=== PATIENT | female | born 1960 | race Caucasian/White ===

== ENCOUNTER 2019-09-14 12:26 | Outpatient (CLI) | payer BC, SELFPAY ==
--- NOTE | 2019-09-14 | XR_ITS ---
WS: [id number] FOOT RIGHT TECHNIQUE: 3 views of the right foot CLINICAL INFORMATION: PLANTAR FASCITIS RIGHT COMPARISON: None. FINDINGS: No evidence of acute fracture or dislocation. Normal tarsal metatarsal alignment. Normal calcaneus. N ormal visualized talar dome. Plantar and Achilles calcaneal spurring. XR/XR foot RT min 3V* [id number] IMPRESSION: Plantar and Achilles calcaneal spurring.
== END 2019-09-14 12:27 | disposition home or self-care (01) ==
LOC: RADOUTREAD 09-15 08:05
PROVIDERS: Family Provider Nurse Practitioner; Visit Provider Physician Assistant
DX: Z76.89 Persons encountering health services in other specified circumstances (principal)

== ENCOUNTER 2020-04-02 19:44 | Emergency (ER) | payer BC, SELFPAY ==
[2020-04-02 19:55] VITALS: BP 114/72; PULSE 94; RESP 18; TEMP 36.8; O2SAT 96; BMI 28.3
--- NOTE | 2020-04-02 20:33 | W.ED.FEMALGU ---
HPI - Female Genitourinary General: Chief complaint: Nausea/Vomiting/Diarrhea Stated complaint: uti Time Seen by Provider: 04/02/20 20:04 History of Present Illness: HPI Narrative: Patient is a 60-year-old female comes to the ED with UTI symptoms. Patient does have a history of kidney stones. Patient says she started developing a fever and left side and lower back/flank pain on Saturday. She also says she has some burning when she urinates. She describes the left flank/lower back pain as achy and constant and she rates it an 8 out of 10. She started developing some nausea and emesis last 24 hours. Patient went to [facility] earlier today she was diagnosed with a UTI and put on antibiotic. Patient says that she went home took the first dose antibiotic and then after that she is been becoming increasingly nauseous and has had multiple episodes of emesis. She tried to take the antibiotic orally again and could not keep it down. Patient says she has had some diarrhea as well. Denies any hematuria Associated symptoms: Reports nausea; Deny abdominal pain or headache(s) Review of Systems Const: Reports: fever(s); Denies: chills or fatigue Eyes: Denies: change in vision or eye discomfort ENMT: Denies: throat pain, odynophagia, nasal discharge or nasal congestion Card: Denies: chest pain, palpitations, edema, swelling of feet/ankles, dyspnea on exertion or orthopnea Resp: Denies: dyspnea, productive cough or non-productive cough GI: Reports: nausea, vomiting and diarrhea; Denies: abdominal pain, constipation or hematochezia : Reports: flank pain and dysuria; Denies: hematuria Musc: Denies: neck pain, back pain or extremity swelling Skin/Breast: Denies: rash or new lesions Neuro: Denies: headache(s), numbness in extremities or weakness in extremities PFS ED PFSH: Social History Smoking and tobacco status: never smoked Alcohol intake: never Current occupational status: employed Current occupation: [employer] Physical Exam Const: COMMON NORMALS: patient oriented x3 and alert GENERAL APPEARANCE: cooperative; not comfortable (Uncomfortable with pain) HENMT: COMMON NORMALS: normocephalic HEAD & SCALP: normocephalic MOUTH: Normal oral and palatal mucosa present THROAT: posterior oropharynx normal and uvula midline Eye: COMMON NORMALS: Equal, round and reactive pupils present PUPIL: Yes Equal, round and reactive pupils present Neck/C-Spine: COMMON NORMALS: supple GENERAL: Yes normal visual inspection Resp: COMMON NORMALS: normal respiratory effort, No retractions, No use of accessory muscles and clear to auscultation bilaterally AUSCULTATION: clear to auscultation bilaterally Cardio: COMMON NORMALS: regular rate, regular rhythm, S1 normal heart sound present, S2 normal heart sound present, No gallops present (Cardio), No clicks present (Cardio), No murmurs present (Cardio) and Peripheral pulses 2+ throughout RATE: regular rate RHYTHM: regular rhythm HEART SOUNDS: S1 normal heart sound present and S2 normal heart sound present PERIPHERAL PULSES: Peripheral pulses 2+ throughout GI: COMMON NORMALS: Normal to inspection, nondistended, normoactive bowel sounds present, Soft to palpation, non-tender and no masses PALPATION: Yes Soft to palpation : COMMON NORMALS: Yes no CVA tenderness BLADDER/KIDNEY EXAM: Yes no CVA tenderness Back/Pelvis: COMMON NORMALS: no CVA tenderness LUMBAR SPINE/LOWER BACK: Yes paraspinal muscle tenderness Lumbar paraspinal muscle tenderness: bilateral Extremity: COMMON NORMALS: normal to inspection Neuro: COMMON NORMALS: patient oriented x3 and moves all extremities SENSORIUM/ORIENTATION: Yes alert Skin: COMMON NORMALS: no rashes or lesions noted GENERAL SKIN EXAM: no rashes or lesions noted and dry skin Course Reevaluation(s): Reevaluation #1: After patient received IV fluids, pain med and Zofran her symptoms greatly improved. Vital Signs: Vital signs: Vital Signs Temperature 98.2 F 04/02/20 19:55 Pulse Rate 72 04/02/20 23:27 Respiratory Rate 18 04/02/20 23:27 Blood Pressure 117/60 04/02/20 23:27 Pulse Oximetry 97 04/02/20 23:27 MDM - Female MDM Narrative: Medical decision making narrative: Patient is a 60-year-old female that comes to the ED with UTI symptoms and left flank and lower back pain. Patient has a past medical history of kidney stones. Patient was diagnosed earlier today at [facility] with a UTI and sent home with an antibiotic. Her pain, nausea and vomiting got worse, so she decided come to the ED for evaluation. Patient had some left lower back tenderness to palpation upon exam. White blood cell count was 18.[address] kidney stone showed small 1.5 mm obstructive stone at the left UVJ. Patient was diagnosed with kidney stone and acute UTI. She was given IV fluids, morphine, Zofran and Rocephin while here in the ED. Her symptoms greatly improved. I placed an order with case management for patient to receive a referral to Dr. Alejandra. Patient was told to strain urine to catch stone and bring it to Dr. Alejandra. She was sent home on a prescription for Levaquin, Zofran and tamsulosin. She was told to drink plenty of fluids and stay hydrated. Return to ED precautions given. I told her case management will be contacting her in the next several days to set up appointment Dr. Alejandra the urologist. Patient understood and agreed with plan. Lab Data: Attestation: I reviewed the patient's lab results. Labs: Lab Results 04/02/20 04/02/20 04/02/20 Range/Units 21:00 21:07 21:07 WBC 18.1 H (4.0-10.0) 10^3/ uL RBC 4.61 (4.1-5.3) 10^6/u L Hgb 13.8 (11.5-15.3) g/dL Hct 42.2 (37.0-47.0) % MCV 91.5 (81-99) fL MCH 29.9 (28.0-34.0) pg MCHC 32.7 (30.0-36.0) g/dL RDW 13.4 (12.1-15.1) % Plt Count 220 (130-400) 10^3/c mm MPV 13.7 H (7.4-10.4) fL Neut % (Auto) 80.7 % Lymph % (Auto) 6.3 % Calvert % (Auto) 11.6 % Eos % (Auto) 0.4 % Baso % (Auto) 0.2 % Neut # (Auto) 14.58 H (1.8-7.7) 10^3/u L Lymph # (Auto) 1.1 (0.8-4.8) 10^3/u L Calvert # (Auto) 2.1 H (0.2-0.9) 10^3/u L Eos # (Auto) 0.1 (0.0-0.8) 10^3/u L Baso # (Auto) 0.0 (0.0-0.1) 10^3/u L Nucleated RBC % (a uto) 0 % Nucleated RBCs # 0.0 /100WBC Sodium 132 L (136-145) mmol/L Potassium 3.5 (3.5-5.1) mmol/L Chloride 98 (98-107) mmol/L Carbon Dioxide 21 L (22-29) mmol/L Anion Gap 16.5 (5-19) BUN 10 (6-20) mg/dL Creatinine 0.6 (0.5-0.9) mg/dL GFR Calculation 102.7 (90-130) mL/min Glucose 201 H (65-115) mg/dL Calculated Osmolal ity 276 L (285-295) mOsm/k g Calcium 8.9 (8.5-10.5) mg/dL Total Bilirubin 1.3 H (0.15-1.2) mg/dL AST 151 H (0-32) U/L ALT 255 H (0-33) U/L Alkaline Phosphata se 143 H (35-105) IU/L Total Protein 7.7 (6.6-8.7) g/dL Albumin 3.8 (3.5-5.2) g/dL Globulin 3.9 (1.3-4.6) g/dL Lipase (13-60) U/L Urine Color Yellow (Yellow) Urine Appearance Sl hazy (CLEAR) Urine pH 5 (5-7) Ur Specific Gravit y 1.010 (1.005-1.030) Urine Protein Trace (Negative) Urine Glucose (UA) Norm (Normal) Urine Ketones 2+ H (Negative) Urine Blood 3+ H (Negative) Urine Nitrate Negative (Negative) Urine Bilirubin 1+ H (NEGATIVE) Urine Urobilinogen 4 H (Negative) mg/dL Ur Leukocyte Fide ase 2+ H (Negative) Urine RBC 5-10 H (0-2) /hpf Urine WBC 10-15 H (0-5) /hpf Ur Squamous Epith Cells 25-40 H (0-5) Amorphous Sediment Not Reportable Urine Bacteria 1+ H (NONE) Urine Mucus 1+ 09/05/20 Range/Units 21:07 WBC (4.0-10.0) 10^3/ uL RBC (4.1-5.3) 10^6/u L Hgb (11.5-15.3) g/dL Hct (37.0-47.0) % MCV (81-99) fL MCH (28.0-34.0) pg MCHC (30.0-36.0) g/dL RDW (12.1-15.1) % Plt Count (130-400) 10^3/c mm MPV (7.4-10.4) fL Neut % (Auto) % Lymph % (Auto) % Calvert % (Auto) % Eos % (Auto) % Baso % (Auto) % Neut # (Auto) (1.8-7.7) 10^3/u L Lymph # (Auto) (0.8-4.8) 10^3/u L Calvert # (Auto) (0.2-0.9) 10^3/u L Eos # (Auto) (0.0-0.8) 10^3/u L Baso # (Auto) (0.0-0.1) 10^3/u L Nucleated RBC % (a uto) % Nucleated RBCs # /100WBC Sodium (136-145) mmol/L Potassium (3.5-5.1) mmol/L Chloride (98-107) mmol/L Carbon Dioxide (22-29) mmol/L Anion Gap (5-19) BUN (6-20) mg/dL Creatinine (0.5-0.9) mg/dL GFR Calculation (90-130) mL/min Glucose (65-115) mg/dL Calculated Osmolal ity (285-295) mOsm/k g Calcium (8.5-10.5) mg/dL Total Bilirubin (0.15-1.2) mg/dL AST (0-32) U/L ALT (0-33) U/L Alkaline Phosphata se (35-105) IU/L Total Protein (6.6-8.7) g/dL Albumin (3.5-5.2) g/dL Globulin (1.3-4.6) g/dL Lipase 15 (13-60) U/L Urine Color (Yellow) Urine Appearance (CLEAR) Urine pH (5-7) Ur Specific Gravit y (1.005-1.030) Urine Protein (Negative) Urine Glucose (UA) (Normal) Urine Ketones (Negative) Urine Blood (Negative) Urine Nitrate (Negative) Urine Bilirubin (NEGATIVE) Urine Urobilinogen (Negative) mg/dL Ur Leukocyte Fide ase (Negative) Urine RBC (0-2) /hpf Urine WBC (0-5) /hpf Ur Squamous Epith Cells (0-5) Amorphous Sediment Urine Bacteria (NONE) Urine Mucus Imaging Data: CT Abd/Pel: Attestation: I personally reviewed and interpreted this imaging study as follows: Radiologist's impression: [place] [address] CT Scan Report Signed Patient: Denise Mclaughlin Unit #: [id number] : 1960 Age/Sex: 60 / F ADM Date: 04/02/20 Loc: ER Room/Bed: Attending Dr: Ordering Provider/Ordering MD: Rolando Albarran Date of Service: 04/02/20 Procedure(s): CT kidney stone 48919 Accession Number(s): [id number] Report Number: [id number] PROCEDURE INFORMATION: Exam: CT Abdomen And Pelvis Without Contrast Exam date and time: 04/02/2020 8:53 PM Age: 60 years old Clinical indication: Abdominal pain; Left; Prior surgery; Surgery date: 6+ months; Surgery type: C-sect x 3; Patient HX: C/O L flank pain w n/v; Additional info: Left flank pain TECHNIQUE: Imaging protocol: Computed tomography of the abdomen and pelvis without contrast. Radiation optimization: All CT scans at this facility use at least one of these dose optimization techniques: automated exposure control; mA and/or kV adjustment per patient size (includes targeted exams where dose is matched to clinical indication); or iterative reconstruction. COMPARISON: No relevant prior studies available. RADIATION DOSE METRICS: Total DLP (mGy-cm): 932.44 FINDINGS: Mediastinal space: A small hiatal hernia is present. Liver: There is a diffuse decrease in hepatic parenchymal density, consistent with fatty infiltration. Gallbladder and bile ducts: Normal. No calcified stones. No ductal dilation. Pancreas: Normal. No ductal dilation. Spleen: Normal. No splenomegaly. Adrenals: Normal. No mass. Kidneys and ureters: There is mild left hydronephrosis and left hydroureter with a 1.5 mm calculus at the left ureteral vesical junction. The right kidney is normal. There is inflammatory left perinephric stranding. Stomach and bowel: There is no evidence of intestinal perforation or obstruction. There is a large amount of stool in the distal colon/rectum. Appendix: A normal appendix is identified. Intraperitoneal space: Unremarkable. No free air. No significant fluid collection. Vasculature: There are numerous benign phleboliths in the pelvis. The aorta is normal. Lymph nodes: Unremarkable.No enlarged lymph nodes. Bladder: TwoThere is nonspecific bladder wall thickening. This may be related to incomplete distention. Reproductive: Unremarkable as visualized. Bones/joints: Unremarkable. No acute fracture. Soft tissues: There is a fat-containing umbilical hernia. CT/CT kidney stone [id number] IMPRESSION: There is mild left hydronephrosis and left hydroureter with a 1.5 mm calculus at the left ureteral vesical junction. Radiation Dose CTDIVOL = (mGy): DLP = 932.44 (mGy-cm) Dictated By: Marisel Burleson Signed By: Marisel Burleson Signed Date/Time: 04/02/202127 DD/ 26 Discharge Plan Discharge Patient Disposition: Home Clinical Impression: Kidney stone on left side, Acute UTI (urinary tract infection) Condition: Stable Prescriptions: New levofloxacin 750 mg tablet 750 mg PO DAILY 7 Days Qty: 7 RF: 0 Zofran 4 mg tablet 4 mg PO Q8H Qty: 20 RF: 0 tamsulosin 0.4 mg capsule 0.4 mg PO DAILY Qty: 15 RF: 0 No Action metoprolol tartrate 25 mg tablet 25 mg PO DAILY RF: 0 omeprazole 20 mg capsule,delayed release(DR/EC) 20 mg PO DAILY RF: 0 citalopram 10 mg tablet 10 mg PO DAILY RF: 0 Discharge Orders: Discharge Order (Routine); Ordered 04/02/20 Ordered By: Rolando Albarran Referrals: Lanny Lawton APN [Primary Care Provider] - Discharge Diet: Regular Discharge Activity: Increase activity as tolerated Patient Instructions: Kidney Stones (ED), Urinary Tract Infection in Women (ED) Activity Restrictions/Additional Instructions: Follow-up with medical provider as directed. Case management should be contacting you in the next several days to set up an appointment with Dr. Alejandra the urologist. Strain urine to catch stone and drink lots of fluid to stay hydrated and help pass stone. Take medications as prescribed. You can take ibuprofen or Aleve for any pain or fevers. Return to the ER or your medical provider if condition worsens. Please read and understand discharge instructions. If any questions, please ask. Discharge Date/Time: 04/02/20 23:35 Coding Level of Care Code ED Senior Gamemaster for Chg Fwd Exam Comprehensive
--- NOTE | 2020-04-02 20:50 | CTR_ITS ---
PROCEDURE INFORMATION: Exam: CT Abdomen And Pelvis Without Contrast Exam date and time: 04/02/2020 8:53 PM Age: 60 years old Clinical indication: Abdominal pain; Left; Prior surgery; Surgery date: 6+ months; Surgery type: C-sect x 3; Patient HX: C/O L flank pain w n/v; Additional info: Left flank pain TECHNIQUE: Imaging protocol: Computed tomography of the abdomen and pelvis without contrast. Radiation optimization: All CT scans at this facility use at least one of these dose optimization techniques: automated exposure control; mA and/or kV adjustment per patient size (includes targeted exams where dose is matched to clinical indication); or iterative reconstruction. COMPARISON: No relevant prior studies available. RADIATION DOSE METRICS: Total DLP (mGy-cm): 932.44 FINDINGS: Mediastinal space: A small hiatal hernia is present. Liver: There is a diffuse decrease in hepatic parenchymal density, consistent with fatty infiltration. Gallbladder and bile ducts: Normal. No calcified stones. No ductal dilation. Pancreas: Normal. No ductal dilation. Spleen: Normal. No splenomegaly. Adrenals: Normal. No mass. Kidneys and ureters: There is mild left hydronephrosis and left hydroureter with a 1.5 mm calculus at the left ureteral vesical junction. The right kidney is normal. There is inflammatory left perinephric stranding. Stomach and bowel: There is no evidence of intestinal perforation or obstruction. There is a large amount of stool in the distal colon/rectum. Appendix: A normal appendix is identified. Intraperitoneal space: Unremarkable. No free air. No significant fluid collection. Vasculature: There are numerous benign phleboliths in the pelvis. The aorta is normal. Lymph nodes: Unremarkable.No enlarged lymph nodes. Bladder: TwoThere is nonspecific bladder wall thickening. This may be related to incomplete distention. Reproductive: Unremarkable as visualized. Bones/joints: Unremarkable. No acute fracture. Soft tissues: There is a fat-containing umbilical hernia. CT/CT kidney stone [id number] IMPRESSION: There is mild left hydronephrosis and left hydroureter with a 1.5 mm calculus at the left ureteral vesical junction. Radiation Dose CTDIVOL = (mGy): DLP = 932.44 (mGy-cm)
[2020-04-02] MEDS: sodium chloride 0.9% 1,000 ML 999 ML IV (21:00)
[2020-04-02] MEDS: ondansetron 2 mg/ML SDV 2 mL 4 MG IVP (21:05)
[2020-04-02 21:12] VITALS: RESP 18; O2SAT 98
[2020-04-02] MEDS: morphine 4 mg/mL SDV 1 mL IVP (21:12)
[2020-04-02 21:18] LABS: Basophils % 0.2 %; Eosinophils # 0.1 10^3/uL (0.0-0.8); Eosinophils % 0.4 %; Hematocrit 42.2 % (37.0-47.0); Hemoglobin 13.8 g/dL (11.5-15.3); Lymphocytes # 1.1 10^3/uL (0.8-4.8); Lymphocytes % 6.3 %; Mean Corpuscular HGB Conc 32.7 g/dL (30.0-36.0); Mean Corpuscular Hemoglobin 29.9 pg (28.0-34.0); Mean Corpuscular Volume 91.5 fL (81-99); Mean Platelet Volume 13.7 fL (7.4-10.4); Monocytes # 2.1 10^3/uL (0.2-0.9); Monocytes % 11.6 %; Neutrophils # 14.58 10^3/uL (1.8-7.7); Neutrophils % 80.7 %; Nucleated Red Blood Cells % 0 %; Platelet Count 220 10^3/cmm (130-400); Red Blood Count 4.61 10^6/uL (4.1-5.3); Red Cell Distribution Width 13.4 % (12.1-15.1); White Blood Count 18.1 10^3/uL (4.0-10.0)
[2020-04-02 21:36] LABS: Alanine Aminotransferase 255 U/L (0-33); Albumin Level 3.8 g/dL (3.5-5.2); Alkaline Phosphatase 143 IU/L (35-105); Anion Gap 16.5 (5-19); Aspartate Amino Transferase 151 U/L (0-32); Blood Urea Nitrogen 10 mg/dL (6-20); Calcium 8.9 mg/dL (8.5-10.5); Carbon Dioxide 21 mmol/L (22-29); Chloride 98 mmol/L (98-107); Creatinine Clr Calc Pharmacy 90.1834; Globulin 3.9 g/dL (1.3-4.6); Glomerular Filtration Rate 102.7 mL/min (90-130); Glucose 201 mg/dL (65-115); Osmolality Calculated 276 mOsm/kg (285-295); Potassium 3.5 mmol/L (3.5-5.1); Sodium 132 mmol/L (136-145); Total Bilirubin 1.3 mg/dL (0.15-1.2); Total Protein 7.7 g/dL (6.6-8.7)
[2020-04-02 21:44] VITALS: BP 126/78; PULSE 86; RESP 18; O2SAT 99
[2020-04-02] MEDS: cefTRIAXone 2,000 MG in sodium chloride 0.9% (plus) 50 ML 100 MG IV (22:05)
[2020-04-02 22:35] LABS: Urine Appearance SL Hazy (CLEAR); Urine Color Yellow (Yellow); pH Urine 5 (5-7)
[2020-04-02 22:36] LABS: Add Urine Microscopic? YES; Bilirubin Urine 1+ (NEGATIVE); Blood Urine 3+ (Negative); Glucose Urine UA Norm (Normal); Ketones Urine 2+ (Negative); Leukocyte Esterase Urine 2+ (Negative); Nitrate Urine Negative (Negative); Protein Urine Trace (Negative); Urobilinogen Urine 4 mg/dL (Negative)
[2020-04-02 22:38] LABS: Bacteria Urine 1+; Squamous Epithelial Cell Urine 25-40 (0-5)
[2020-04-02 22:39] LABS: Add Urine Culture? No; Mucus Urine 1+
[2020-04-02 22:45] LABS: Lipase 15 U/L (13-60)
[2020-04-02] MEDS: tamsulosin 0.4 mg Capsule PO (23:01)
[2020-04-02 23:27] VITALS: BP 117/60; PULSE 72; RESP 18; O2SAT 97
[2020-04-03 02:04] LABS: Hepatitis A Antibody IgM Non-Reactive (Nonreactive); Hepatitis B Core AB, Total Non-Reactive (Nonreactive); Hepatitis B Surface AB 3.5 (0-8.5); Hepatitis B Surface Antigen Non-Reactive (Nonreactive); Hepatitis C Virus Antibody Non-Reactive (Nonreactive)
--- NOTE | 2020-04-05 10:25 | DCPLANNER ---
sales manager prearranged funerals had message to schedule a follow up appointment for patient with Dr. Alejandra. sales manager prearranged funerals called the office of Dr. Alejandra, spoke with Tisha, gave clinic patients information. sales manager prearranged funerals was told that patients information would be printed and given to Carie for review. Clinic will call patient with appointment information.
--- NOTE | 2020-04-08 08:05 | DCPLANNER ---
Patient did not attend appointment scheduled for 04.06.[address] Alejandra.
== END 2020-04-02 23:35 | disposition home or self-care (01) ==
PROVIDERS: Emergency Provider Physician Assistant; PCP Nurse Practitioner
DX: N39.0 Urinary tract infection, site not specified (principal); N20.0 Calculus of kidney
CPT/HCPCS: 12345; 74176; 80053; 81001; 83690; 85025; 86705; 86706; 86709; 86803; 87340; 96365; 96375; 99282; 99284; J0696; J2270; J2405; J7030

== ENCOUNTER 2021-03-10 13:01 | Outpatient (CLI) | payer BC, SELFPAY ==
--- NOTE | 2021-03-10 13:09 | MM_ITS ---
WS: [id number] SCREENING DIGITAL MAMMOGRAM WITH CAD HISTORY: SCREENING COMPARISON: 11/21/2018 and 09/20/2017 Bilateral CC and MLO views submitted. Computer aided detection analyzed. Breast composition: There are scattered areas of fibroglandular density. No suspicious masses, microc alcifications or architectural distortion. MM/[place] [id number] IMPRESSION: BI-RADS: 1-Negative FOLLOW UP: 1 Year Follow-up
== END 2021-03-10 13:02 | disposition home or self-care (01) ==
PROVIDERS: PCP Nurse Practitioner; Visit Provider Nurse Practitioner
DX: Z12.31 Encounter for screening mammogram for malignant neoplasm of breast (principal)
CPT/HCPCS: 77067

== ENCOUNTER → 2022-08-02 07:57 | Outpatient (BNVA) | payer OTHER, SELFPAY | PROVIDERS: PCP Clinical Nurse Specialist Adult Health; Visit Provider Clinical Nurse Specialist Adult Health | DX: I10 Essential (primary) hypertension (principal); F41.1 Generalized anxiety disorder; E11.9 Type 2 diabetes mellitus without complications | CPT/HCPCS: 80053; 80061; 83036; 85025 ==

== ENCOUNTER → 2023-08-06 16:19 | Outpatient (BNVA) | payer OTHER, SELFPAY | PROVIDERS: PCP Clinical Nurse Specialist Adult Health; Visit Provider Clinical Nurse Specialist Adult Health | DX: E11.9 Type 2 diabetes mellitus without complications (principal) | CPT/HCPCS: 80053; 80061; 83036; 85025 ==

== ENCOUNTER 2023-08-20 12:54 | Outpatient (CLI) | payer OTHER, SELFPAY ==
--- NOTE | 2023-08-20 13:01 | XR_ITS ---
WS: [id number] SCREENING DEXA SCAN [facility] CLINICAL INFORMATION: POST MENOPAUSAL COMPARISON: None. FINDINGS: The L1-L4 bone mineral density measures 1.112 g/cm2. This corresponds to a T score score of -0.6 and Z score of 0.4. Left femoral neck bone mineral density measures 1.009 g/cm2. This corresponds to a T score of 0.0 and Z score of 0.8. Right femoral neck bone mineral density measures 0.972 g/cm2. This corresponds to a T score -0.3of an d Z score of 0.5. Mean femoral neck bone mineral density measures 0.990 g/cm2. This corresponds to a T score of -0.1 an d Z score of 0.6. IMPRESSION: Normal bone mineralization. Patient's FRAX calculated 10 year probability for major osteoporotic fracture is 8.5% and osteoporoti c hip fracture is 0.8%.
== END 2023-08-20 12:55 | disposition home or self-care (01) ==
LOC: RAD 12:54
PROVIDERS: PCP Clinical Nurse Specialist Adult Health; Visit Provider Clinical Nurse Specialist Adult Health
DX: Z13.820 Encounter for screening for osteoporosis (principal); Z78.0 Asymptomatic menopausal state
CPT/HCPCS: 77080

== ENCOUNTER → 2023-12-05 10:25 | Outpatient (BNVA) | payer OTHER, SELFPAY | PROVIDERS: PCP Clinical Nurse Specialist Adult Health; Visit Provider Clinical Nurse Specialist Adult Health | DX: R10.9 Unspecified abdominal pain (principal) | CPT/HCPCS: 80053; 80061; 83690; 85025; 86140 ==

== ENCOUNTER 2023-12-16 07:12 | Outpatient (CLI) | payer OTHER, SELFPAY ==
--- NOTE | 2023-12-16 07:30 | US_ITS ---
WS: [id number] Complete ABDOMINAL ULTRASOUND HISTORY: abdominal pain COMPARISON: Renal ultrasound 12/11/2007 Liver: 20.4 cm in length. Moderately enlarged liver with coarse echotexture. No mass or bile duct dil atation. Portal Vein: Normal hepatopetal flow with monophasic waveform. Gallbladder: Normally distended gallbladder with no stones or wall thickening. CBD: 0.3 cm Pancreas: Normal size and echogenicity. Right kidney: 12.1 cm x 5.9 x 4.2 cm. Cortex:1.0 cm. Normal size and echogenicity. No hydronephrosis or mass. Left kidney: 10.4 cm x 5.8 cm x 4.8 cm. Cortex: 1.1 cm. Normal size and echogenicity. No hydronephrosis or mass. Spleen: 10.0 cm. Normal size and echogenicity. Aorta and IVC: Unremarkable abdominal aorta and IVC. US/US abdomen complete* [id number] Impression: 1. No cholelithiasis. Gallbladder is slightly contracted but no wall thickenin g or evidence for acute cholecystitis. 2. Moderate hepatomegaly and hepatic steatosis. 3. No renal obstruction.
== END 2023-12-16 07:13 | disposition home or self-care (01) ==
LOC: RAD 07:12
PROVIDERS: PCP Clinical Nurse Specialist Adult Health; Visit Provider Clinical Nurse Specialist Adult Health
DX: R16.0 Hepatomegaly, not elsewhere classified (principal); K76.0 Fatty (change of) liver, not elsewhere classified; R10.9 Unspecified abdominal pain
CPT/HCPCS: 76700; 80053; 80061; 83690; 85025; 86140

== ENCOUNTER 2024-04-09 11:22 | Outpatient (CLI) | payer OTHER, SELFPAY ==
--- NOTE | 2024-04-09 11:23 | MM_ITS ---
WS: [id number] BILATERAL SCREENING DIGITAL TOMOSYNTHESIS MAMMOGRAM WITH CAD HISTORY: SCREENING COMPARISON: 03/10/2021, 11/21/2018 Bilateral CC and MLO views with tomosynthesis and synthetic mammography submitted. Computer aided det ection analyzed. Breast composition: There are scattered areas of fibroglandular density. No suspicious masses, microc alcifications or architectural distortion. Focal asymmetry in the lateral LEFT breast has been presen t on multiple prior examinations. No progression. MM/[place] [id number] IMPRESSION: BI-RADS: 2 - Benign. FOLLOW UP: 1 Year Follow-up
== END 2024-04-09 11:23 | disposition home or self-care (01) ==
LOC: RAD 11:22
PROVIDERS: PCP Clinical Nurse Specialist Adult Health; Visit Provider Clinical Nurse Specialist Adult Health
DX: Z12.31 Encounter for screening mammogram for malignant neoplasm of breast (principal); R92.323 Mammographic fibroglandular density, bilateral breasts; N64.89 Other specified disorders of breast
CPT/HCPCS: 77063; 77067

== ENCOUNTER → 2024-04-22 07:40 | Outpatient (BNVA) | payer OTHER, SELFPAY | PROVIDERS: PCP Clinical Nurse Specialist Adult Health; Visit Provider Clinical Nurse Specialist Adult Health | DX: E11.9 Type 2 diabetes mellitus without complications (principal) | CPT/HCPCS: 83036 ==

== ENCOUNTER 2024-05-28 09:18 | Emergency (ER) | payer OTHER, SELFPAY ==
[2024-05-28 09:25] VITALS: BP 178/89; RESP 16; TEMP 36.8; O2SAT 98; BMI 30.2
[2024-05-28] MEDS: HYDROcodone-acetaminophen 7.5-325 mg Tablet 1 TAB PO (09:43)
--- NOTE | 2024-05-28 10:04 | ED_ITS ---
HPI - Skin/Abscess/Foreign Bdy General: Chief complaint: Skin/Abscess/Foreign Body Stated complaint: abd pains Time Seen by Provider: 05/28/24 09:23 Source: patient Mode of arrival: ambulatory Limitations: no limitations History of Present Illness: 64-year-old female who states she had an abscess to her right groin for the last week states she saw urgent care 4 days ago started on Bactrim but has not had a land states the area has increased in size and has had more pain. She denies any fever she denies any vomiting. Associated symptoms: Deny chills, fever(s), nausea or vomiting Related Data Home Medications Medication Instructions Recorded Confirmed omeprazole 20 mg capsule,delayed 20 mg PO DAILY 10/19/19 05/25/24 release Previous Rx's Medication Instructions Recorded citalopram 10 mg tablet 10 mg PO DAILY #90 tabs 08/06/23 metformin 500 mg tablet 500 mg PO BID 90 days #180 tabs 08/06/23 metoprolol succinate 25 mg 25 mg PO DAILY #90 tabs 08/06/23 tablet,extended release 24 hr sulfamethoxazole 800 1 tab PO BID 7 days #14 tabs 05/25/24 mg-trimethoprim 160 mg tablet (Bactrim DS) Allergies Allergy/AdvReac Type Severity Reaction Status Date / Time No Known Allergies Allergy Verified 05/25/24 10:53 Review of Systems Const: Denies: fever(s), chills, body aches or change in appetite ENMT: Denies: throat pain or dental pain Card: Denies: chest pain Resp: Denies: dyspnea GI: Denies: abdominal pain, nausea, vomiting or diarrhea Musc: Denies: neck pain or back pain Skin/Breast: Denies: rash PFSH ED PFSH: Medical History Post menopausal problems Elevated LFTs Generalized anxiety disorder Type 2 diabetes mellitus without complications Hypertension GERD (gastroesophageal reflux disease) Surgical History History of History of neck surgery 2006 Family History Other Diabetes Hypertension Social History Smoking and tobacco/nicotine status: never used tobacco/nicotine Alcohol intake: never Substance/Drug Use: never Current occupational status: employed Current occupation: [employer] Physical Exam Const: COMMON NORMALS: no acute distress, patient oriented x3 and healthy appearing HENMT: COMMON NORMALS: normocephalic and atraumatic HEAD & SCALP: normocephalic and atraumatic Neck/C-Spine: COMMON NORMALS: full ROM and supple Chest: COMMONS NORMALS: normal inspection of the chest Resp: COMMON NORMALS: normal respiratory effort GI: COMMON NORMALS: Soft to palpation, non-tender and no masses PALPATION: Yes Soft to palpation OTHER: Abscess noted to right groin roughly 2 cm Extremity: COMMON NORMALS: normal to inspection and full ROM Neuro: COMMON NORMALS: patient oriented x3, moves all extremities and no focal motor deficits Psych: COMMON NORMALS: mental status grossly normal, Normal thought process present and cooperative THOUGHT PROCESS: Normal thought process present Skin: COMMON NORMALS: no rashes or lesions noted and no wounds GENERAL SKIN EXAM: no rashes or lesions noted Procedures Abscess I/D Site: abdomen Side (if applicable): right Local Anesthetic: lidocaine 1% Amount of anesthesia used (mL): 8 Technique: incised with #11 blade Packing used?: iodoform Course Vital Signs: Vital signs: Vital Signs Temperature 98.2 F 05/28/24 09:25 Respiratory Rate 16 05/28/24 09:25 Blood Pressure 178/89 05/28/24 09:25 Pulse Oximetry 98 05/28/24 09:25 Oxygen Delivery Me thod Room Air 05/28/24 09:25 MDM - Skin/Abscess/Foreign Bdy Medicial Decision Making Patient presents here with abscess to right groin did incise and drain the abscess did place packing she is removed through the packing in 2 days she is to continue her Bactrim she is follow-up with PCP and return if worsening she understands agrees to plan. Medical Records I reviewed the patient's medical records. All radiology interpretation(s) finalized by discharge Discharge Plan Discharge Patient Disposition: Home Clinical Impression: Abscess Condition: Stable Prescriptions: No Action omeprazole 20 mg capsule,delayed release(DR/EC) 20 mg PO DAILY citalopram 10 mg tablet 10 mg PO DAILY Qty: 90 3RF metformin 500 mg tablet 500 mg PO BID 90 Days Qty: 180 3RF metoprolol succinate 25 mg tablet extended release 24 hr 25 mg PO DAILY Qty: 90 3RF sulfamethoxazole-trimethoprim [Bactrim DS] 800-160 mg tablet 1 tab PO BID 7 Days Qty: 14 0RF Discharge Orders: Discharge ED (Routine); Ordered 05/28/24 Ordered By: Selma Coates Referrals: Chava Corado [employer] INSPECTOR [Primary Care Provider] - 4-7 days Discharge Diet: Advance as tolerated Discharge Activity: Resume usual activity Patient Instructions: Abscess (ED) Coding Level of Care Code ED Edger Automatic for Ajay Davison
[2024-05-28 10:06] VITALS: BP 178/89; PULSE 67; O2SAT 98
== END 2024-05-28 10:09 | disposition home or self-care (01) ==
PROVIDERS: Emergency Provider Emergency Medicine; PCP Clinical Nurse Specialist Adult Health
DX: L02.214 Cutaneous abscess of groin (principal); Z79.84 Long term (current) use of oral hypoglycemic drugs; E11.9 Type 2 diabetes mellitus without complications; I10 Essential (primary) hypertension
CPT/HCPCS: 10060; 99283

== ENCOUNTER 2024-09-29 05:17 | Emergency (ER) | payer OTHER, SELFPAY ==
[2024-09-29 05:33] VITALS: BP 198/109; PULSE 61; RESP 18; TEMP 36.4; O2SAT 99; BMI 27.4
--- NOTE | 2024-09-29 05:34 | ECG_ITS ---
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 Measurements Intervals [place] Rate: 60 P: 34 [place]: 137 QRS: 30 QRSD: 97 T: 30 QT: 395 QTc: 397 Interpretive Statements SINUS RHYTHM No previous ECG available for comparison Electronically Signed On 10-03-2024 18:12:36 DEWATERING FILTERING SUPERVISOR by Waldo Alvarado M.D. [email or web address]
--- NOTE | 2024-09-29 05:45 | XRR_ITS ---
PROCEDURE INFORMATION: Exam: XR Chest Exam date and time: 09/29/2024 5:57 AM Age: 64 years old Clinical indication: Other: Dizziness; Additional info: Hypertension TECHNIQUE: Imaging protocol: Radiologic exam of the chest. Views: 1 view. COMPARISON: No relevant prior studies available. FINDINGS: Lungs: Unremarkable. No consolidation. Pleural spaces: Unremarkable. No pleural effusion. No pneumothorax. Heart/Mediastinum: Unremarkable. No cardiomegaly. Bones/joints: Unremarkable. XR/XR chest 1V portable 24900 IMPRESSION: No acute findings.
[2024-09-29 05:59] LABS: Basophils % 0.3 %; Eosinophils # 0.1 10^3/uL (0.0-0.8); Eosinophils % 1.8 %; Hematocrit 43.3 % (36-47); Lymphocytes # 2.5 10^3/uL (0.8-4.8); Lymphocytes % 34.3 %; Mean Corpuscular HGB Conc 32.8 g/dL (30-55); Mean Corpuscular Hemoglobin 28.9 pg (27-33); Mean Corpuscular Volume 88.2 fl (85-98); Mean Platelet Volume 13.6 fL (7.4-10.4); Monocytes # 0.5 10^3/uL (0.2-0.9); Monocytes % 6.9 %; Neutrophils # 4.04 10^3/uL (1.8-7.7); Neutrophils % 56.4 %; Nucleated Red Blood Cells % 0 %; Platelet Count 247 10^3/cmm (157-399); Red Blood Count 4.91 10^6/uL (3.85-5.65); Red Cell Distribution Width 13.2 % (12.1-15.1); White Blood Count 7.15 10^3/uL (3.29-11.43)
[2024-09-29 06:27] LABS: Alanine Aminotransferase 23 U/L (0-33); Albumin Level 3.9 g/dL (3.5-5.2); Alkaline Phosphatase 69 U/L (35-105); Aspartate Amino Transferase 16 U/L (0-32); Blood Urea Nitrogen 10 mg/dL (8-23); Calcium 9.4 mg/dL (8.5-10.5); Carbon Dioxide 27 mmol/L (22-29); Chloride 104 mmol/L (98-107); Creatinine Clr Calc Pharmacy 87.9021; Globulin 2.9 g/dL (1.3-4.6); Glomerular Filtration Rate 101.3 mL/min (90-130); Glucose 135 mg/dL (65-115); Osmolality Calculated 291 mOsm/kg (285-295); Sodium 140 mmol/L (136-145); Total Bilirubin 0.3 mg/dL (0.15-1.2); Total Protein 6.8 g/dL (6.6-8.7); Troponin(5th) Baseline < 6 ng/L (0-10)
--- NOTE | 2024-09-29 06:39 | ED_ITS ---
HPI - Dizziness 2 General: Chief Complaint: Dizziness Stated Complaint: High BP\Dizzy Time Seen by Provider: 09/29/24 05:45 History of Present Illness: HPI Narrative: 62-year-old female with a history of dif ficulty with blood pressure. Recently had losartan added to her metoprolol regimen for blood pressure. She is diabetic. She woke up at around 3 this morning did not feel well felt very dizzy felt like she was spinning towards her left continuously. Checked her blood pressure was 170s over 110s was not able to go to sleep after that. This time she arrived here her dizziness has resolved. she can no longer reproduce it blood pressure is also improved. She has been up and ambulatory from the room to the bathroom without any difficulty or weakness. I assumed her care at change of shift. Associated symptoms: Denies chest pain or chills Related Data Home Medications ?Medication ?Instructions ?Recorded ?Confirmed omeprazole 20 mg capsule,delayed 20 mg PO DAILY 09/29/24 release Previous Rx's ?Medication ?Instructions ?Recorded citalopram 10 mg tablet 10 mg PO DAILY #90 tabs 08/29 11/20 metformin 500 mg tablet 500 mg PO BID 90 days #180 t abs 09/11/24 metoprolol succinate 25 mg 25 mg PO DAILY #90 tabs tablet,extended release 24 hr amlodipine 5 mg tablet 5 mg PO DAILY #30 tabs 09/29 aspirin 81 mg tablet,delayed 81 mg PO DAILY #30 tabs 0 09/29/24 release atorvastatin 40 mg tablet (Lipitor) 40 mg PO DAILY #30 tabs 09/29/24 clopidogrel 75 mg tablet 75 mg PO DAILY #30 tabs 0311/20 losartan 50 mg-hydrochlorothiazide 1 tab PO DAILY #30 tabs 09/29/24 12.5 mg tablet (Hyzaar) Allergies Allergy/AdvReac Type Severity Reaction Status Date / Time No Known Allergies Allergy Verified 09/29/24 05:35 Review of Systems 2 Const: Denies: fever(s) or chills Card: Denies: chest pain Resp: Denies: dyspnea GI: Denies: abdominal pain : Denies: dysuria, urinary frequency or urinary urgency Musc: Denies: neck pain or back pain Skin/Breast: Denies: rash Neuro: Reports: dizziness PFSH ED 2 PFSH: Medical History Post menopausal problems Elevated LFTs Generalized anxiety disorder Type 2 diabetes mellitus without complications Hypertension GERD (gastroesophageal reflux disease) Surgical History History of History of neck surgery 2007 Family History Other Diabetes Hypertension Social History Smoking and tobacco/nicotine status: never used tobacco/nicotine Alcohol intake: never Substance/Drug Use: never Current occupational status: employed Current occupation: [employer] dept Physical Exam 2 Const: COMMON NORMALS: no acute distress GENERAL APPEARANCE: cooperative and comfortable ORIENTATION/CONSCIOUSNESS: Yes awake, Yes oriented to person, Yes oriented to place and Yes oriented to time HENMT: COMMON NORMALS: normocephalic, atraumatic and hearing grossly normal bilaterally HEAD & SCALP: normocephalic and atraumatic Resp: COMMON NORMALS: normal respiratory effort, No retractions, No use of accessory muscles and clear to auscultation bilaterally AUSCULTATION: clear to auscultation bilaterally Cardio: COMMON NORMALS: regular rate, regular rhythm and No murmurs present (Cardio) RATE: regular rate RHYTHM: regular rhythm GI: COMMON NORMALS: Soft to palpation and No hepatosplenomegaly present A USCULTATION: Yes normoactive bowel sounds PALPATION: Yes Soft to palpation, No Tenderness to palpation present (GI), No Guarding due to palpation present (GI) and Yes No hepatosplenomegaly present Extremity: COMMON NORMALS: normal to inspection, capillary refill normal, no clubbing, cyanosis or edema, no calf tenderness and no pedal edema Neuro: SENSORIUM/ORIENTATION: Yes oriented to person, Yes oriented to place and Yes oriented to time Skin: COMMON NORMALS: no rashes or lesions noted GENERAL SKIN EXAM: no rashes or lesions noted Course 2 Vital Signs: Vital signs: Vital Signs Temperature 97.5 F L 09/29/24 05:33 Pulse Rate 72 09/29/24 09:04 Respiratory Rate 18 09/29/24 05:33 Blood Pressure 145/84 09/29/24 09:04 Pulse Oximetry 97 03/04/25 09:04 Oxygen Delivery Me thod Room Air 09/29/24 05:33 MDM - Dizziness Medical Decision Making All of patient's symptoms are resolved by the time she arrived here. When I first seen patient and NIH score and it was it is 0. Blood pressure has improved but it is still elevated. Patient has no previous history of stroke or TIA she has not taken antiplatelet therapy. Will have her stop the losartan 25 and replace it with losartan and 50/12.5 daily, will also add amlodipine 5 mg daily continue metoprolol at the same. Add atorvastatin aspirin and clopidogrel as well. She was able to ambulate has no symptoms at all at this time. Believe her symptoms are due to elevated blood pressure but she would benefit from dual platelet therapy and statin as well. Follow-up with her primary care doctor within the week to reevaluate blood pressure. Patient vies if she has recurrent symptoms to return to the emergency room. Medical Records I reviewed the patient's medical records. Lab Data I reviewed the patient's lab results. 09/29/24 05:50 09/29/24 05:50 Radiology Impressions Chest X-Ray 09/29/24 05:45 IMPRESSION: No acute findings. Head CT 09/29/24 06:48 IMPRESSION: 1. No CT evidence of acute intracranial pathology. 2. Additional findings, as above. Laboratory Results WBC 7.15 10^3/uL (3.29-11.43) 09/29/24 05:50 RBC 4.91 10^6/uL (3.85-5.65) 09/29/24 05:50 Hgb 14.20 g/dL (11.27-16.99) 09/29/24 05:50 Hct 43.3 % (36-47) 09/29/24 05:50 MCV 88.2 fl (85-98) 09/29/24 05:50 MCH 28.9 pg (27-33) 09/29/24 05:50 MCHC 32.8 g/dL (30-55) 09/29/24 05:50 RDW 13.2 % (12.1-15.1) 09/29/24 05:50 Plt Count 247 10^3/cmm (157-399) 09/29/24 05:50 MPV 13.6 fL (7.4-10.4) H 09/29/24 05:50 Neut % (Auto) 56.4 % 09/29/24 05:50 Lymph % (Auto) 34.3 % 09/29/24 05:50 Parmer % (Auto) 6.9 % 09/29/24 05:50 Eos % (Auto) 1.8 % 09/29/24 05:50 Baso % (Auto) 0.3 % 09/29/24 05:50 Neut # (Auto) 4.04 10^3/uL (1.8-7.7) 09/29/24 05:50 Lymph # (Auto) 2.5 10^3/uL (0.8-4.8) 09/29/24 05:50 Parmer # (Auto) 0.5 10^3/uL (0.2-0.9) 09/29/24 05:50 Eos # (Auto) 0.1 10^3/uL (0.0-0.8) 09/29/24 05:50 Baso # (Auto) 0.0 10^3/uL (0.0-0.1) 09/29/24 05:50 Nucleated RBC % (auto) 0 % 09/29/24 05:50 Nucleated RBCs # 0.0 /100WBC 09/29/24 05:50 Sodium 140 mmol/L (136-145) 09/29/24 05:50 Potassium 4.0 mmol/L (3.5-5.1) 09/29/24 05:50 Chloride 104 mmol/L (98-107) 09/29/24 05:50 Carbon Dioxide 27 mmol/L (22-29) 09/29/24 05:50 Anion Gap 13.0 (5-19) 09/29/24 05:50 BUN 10 mg/dL (8-23) 09/29/24 05:50 Creatinine 0.6 mg/dL (0.5-0.9) 09/29/24 05:50 GFR Calculation 101.3 mL/min (90-130) 09/29/24 05:50 Glucose 135 mg/dL (65-115) H 09/29/24 05:50 Calculated Osmolality 291 mOsm/kg (285-295) 09/29/24 05:50 Calcium 9.4 mg/dL (8.5-10.5) 09/29/24 05:50 Total Bilirubin 0.3 mg/dL (0.15-1.2) 09/29/24 05:50 AST 16 U/L (0-32) 09/29/24 05:50 ALT 23 U/L (0-33) 09/29/24 05:50 Alkaline Phosphatase 69 U/L (35-105) 09/29/24 05:50 Troponin T Baseline < 6 ng/L (0-10) 09/29/24 05:50 Troponin T 120 Minute 6.00 ng/L (0-10) 09/29/24 07:34 Delta Troponin T 0.84590 ABS# (0-10) 09/29/24 07:34 C-Reactive Protein 3.0 mg/L (0.0-4.9) 09/29/24 05:50 Total Protein 6.8 g/dL (6.6-8.7) 09/29/24 05:50 Albumin 3.9 g/dL (3.5-5.2) 09/29/24 05:50 Globulin 2.9 g/dL (1.3-4.6) 09/29/24 05:50 All radiology interpretation(s) finalized by discharge Discharge Plan Discharge Patient Disposition: Home Clinical Impression: Accelerated hypertension, Dizziness Condition: Stable Prescriptions: New amlodipine 5 mg tablet 5 mg PO DAILY Qty: 30 0RF aspirin 81 mg tablet,delayed release (DR/EC) 81 mg PO DAILY Qty: 30 0RF atorvastatin [Lipitor] 40 mg tablet 40 mg PO DAILY Qty: 30 0RF clopidogrel 75 mg tablet 75 mg PO DAILY Qty: 30 0RF losartan-hydrochlorothiazide [Hyzaar] 50-12.5 mg tablet 1 tab PO DAILY Qty: 30 0RF Discontinued losartan 25 mg tablet 25 mg PO DAILY Qty: 90 0RF No Action omeprazole 20 mg capsule,delayed release(DR/EC) 20 mg PO DAILY citalopram 10 mg tablet 10 mg PO DAILY Qty: 90 3RF metformin 500 mg tablet 500 mg PO BID 90 Days Qty: 180 3RF metoprolol succinate 25 mg tablet extended release 24 hr 25 mg PO DAILY Qty: 90 3RF Discharge Orders: Discharge ED (Routine); Ordered 09/29/24 Ordered By: Esteban Huston Referrals: Chava Corado, DONOR SERVICES TECHNICIAN [Primary Care Provider] - Discharge Diet: Cardiac and Low Salt Discharge Activity: Resume usual activity Patient Instructions: Opioid Safety, Pain Management Activity Restrictions/Additional Instructions: Thank you for choosing [facility] for your healthcare needs today. It is very important that you follow up as instructed or that you return to the Emergency Department should you have concerns or if your condition changes or worsens in any way. You were seen in the emergency room for complaint of dizziness that also correlated with elevated blood pressure. When your blood pressure improved your symptoms improved as well. We recommend changing your medication regiment. Stop the losartan 25 mg daily. Will have you add aspirin 81 mg daily clopidogrel 75 mg daily start losartan hydrochlorothiazide 50/12.51 daily and amlodipine 5 mg daily. You should follow-up with your doctor within the next week to reevaluate blood pressure. If you have recurrence of symptoms return to the emergency room. Print Language: [place] Coding Level of Care Code ED Clinical Safety Manager for Ajay Davison NIH stroke score NIHSS Level Of Consciousness - 1a: 0 Level Of Consciousness Questions - 1b: Both Correct Level Of Consciousness Commands - 1c: Both Correct Best Gaze - 2: Normal Visual Avila - 3: No Visual Loss Facial Palsy - 4: Normal Motor Arm Right - 5: No Drift Motor Arm Left - 5: No Drift Motor Leg Right - 6: No Drift Motor Leg Left - 6: No Drift Limb Ataxia - 7: Absent Sensory - 8: Normal Best Language - 9: No Aphasia Dysarthia - 10: Normal Extinction And Inattention - 11: 0 Score Total Score: 0
--- NOTE | 2024-09-29 06:48 | CTR_ITS ---
PROCEDURE INFORMATION: Exam: CT Head Without Contrast Exam date and time: 09/29/2024 7:02 AM Age: 64 years old Clinical indication: Dizziness; Additional info: Accelerated hypertension, dizziness TECHNIQUE: Imaging protocol: Computed tomography of the head without contrast. Axial, coronal and sagittal reformatted images were created and reviewed. Radiation optimization: All CT scans at this facility use at least one of these dose optimization techniques: automated exposure control; mA and/or kV adjustment per patient size (includes targeted exams where dose is matched to clinical indication); or iterative reconstruction. COMPARISON: No relevant prior studies available. RADIATION DOSE METRICS: Total DLP (mGy-cm): 1067.26 FINDINGS: Brain: No CT evidence of acute intracranial hemorrhage or acute territorial infarction. No significant mass effect or midline shift. Basal cisterns patent. Cerebral ventricles: Mild prominence of the cortical sulci, cisterns and ventricular system, consistent with cerebral and cerebellar volume loss. Paranasal sinuses: Unremarkable. No fluid levels. Mastoid air cells: Grossly unremarkable. Bones: Unremarkable. No acute fracture. Soft tissues: Grossly unremarkable. CT/CT head wo con* [id number] IMPRESSION: 1. No CT evidence of acute intracranial pathology. 2. Additional findings, as above.
[2024-09-29] MEDS: hyDRALAzine 20 mg/mL INJ 1 mL 10 MG IVP (07:19)
[2024-09-29] MEDS: amlodipine 5 mg Tablet PO (07:19)
[2024-09-29] MEDS: metoprolol succinate ER (24 HR) 25 mg Tablet PO (07:19)
[2024-09-29 07:24] VITALS: BP 201/102; PULSE 60; O2SAT 97
--- NOTE | 2024-09-29 07:26 | ECG_ITS ---
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 Measurements Intervals [place] Rate: 62 P: 51 [place]: 140 QRS: 37 QRSD: 93 T: 42 QT: 395 QTc: 402 Interpretive Statements SINUS RHYTHM Compared to ECG 09/29/2024 05:34:29 No significant changes Electronically Signed On 10-03-2024 19:46:34 RESEARCH METHODS INSTRUCTOR by Waldo Alvarado M.D. [email or web address]
[2024-09-29 07:58] LABS: Troponin 5 2HR Delta 0.00001 ABS# (0-10)
[2024-09-29 08:55] VITALS: BP 145/84; PULSE 72; O2SAT 97
[2024-09-29 09:04] VITALS: BP 145/84; PULSE 72; O2SAT 97
== END 2024-09-29 09:19 | disposition home or self-care (01) ==
PROVIDERS: Emergency Medicine; Emergency Provider Family Medicine; PCP Clinical Nurse Specialist Adult Health
DX: I10 Essential (primary) hypertension (principal); R42 Dizziness and giddiness; Z79.82 Long term (current) use of aspirin; Z79.02 Long term (current) use of antithrombotics/antiplatelets; E11.9 Type 2 diabetes mellitus without complications
CPT/HCPCS: 36415; 70450; 71045; 80053; 84484; 85025; 86140; 93005; 96374; 99285; J0360

== ENCOUNTER → 2024-10-14 08:22 | Outpatient (BNVA) | payer OTHER, SELFPAY | PROVIDERS: PCP Clinical Nurse Specialist Adult Health; Visit Provider Clinical Nurse Specialist Adult Health | DX: I10 Essential (primary) hypertension (principal); E11.9 Type 2 diabetes mellitus without complications; R79.89 Other specified abnormal findings of blood chemistry; Z79.899 Other long term (current) drug therapy | CPT/HCPCS: 80053; 80061; 85025 ==

== ENCOUNTER 2025-05-05 06:32 | Outpatient (CLI) | payer OTHER, SELFPAY ==
[2025-05-05 07:19] LABS: Hematocrit 44.5 % (36-47); Hemoglobin 14.50 g/dL (11.27-16.99); Mean Corpuscular HGB Conc 32.6 g/dL (30-55); Mean Corpuscular Hemoglobin 29.5 pg (27-33); Mean Corpuscular Volume 90.4 fl (85-98); Nucleated Red Blood Cells % 0 %; Platelet Count 260 10^3/cmm (157-399); Red Blood Count 4.92 10^6/uL (3.85-5.65); White Blood Count 7.50 10^3/uL (3.29-11.43)
[2025-05-05 07:45] LABS: Estmated Average Glucose 137; Hemoglobin A1C 6.4 % (4.0-6.0)
[2025-05-05 07:49] LABS: Creatinine Urine, Random 38 mg/dL (28-217); Microalbum Creatinine Ratio Ur 26 mg/dL (0-20)
[2025-05-05 08:04] LABS: Alanine Aminotransferase 32 U/L (0-33); Albumin Level 4.1 g/dL (3.5-5.2); Alkaline Phosphatase 65 U/L (35-105); Anion Gap 14.3 (5-19); Aspartate Amino Transferase 24 U/L (0-32); Blood Urea Nitrogen 11 mg/dL (8-23); Calcium 9.1 mg/dL (8.5-10.5); Carbon Dioxide 27 mmol/L (22-29); Chloride 106 mmol/L (98-107); Cholesterol 177 mg/dL (0-200); Globulin 3.5 g/dL (1.3-4.6); Glucose 130 mg/dL (65-115); HDL Cholesterol 47 mg/dL (60-100); Osmolality Calculated 297 mOsm/kg (285-295); Potassium 4.3 mmol/L (3.5-5.1); Sodium 143 mmol/L (136-145); Thyroid Stimulating Hormone 2.24 uIU/mL (0.27-4.20); Total Protein 7.6 g/dL (6.6-8.7); Triglycerides 111 mg/dL (0-150); VLDL Cholestrol Calculation 22 mg/dL (0-30); Vitamin B12 411 pg/mL (232-1245)
== END 2025-05-05 06:33 | disposition home or self-care (01) ==
PROVIDERS: PCP Clinical Nurse Specialist Adult Health; Visit Provider Clinical Nurse Specialist Adult Health
DX: I10 Essential (primary) hypertension (principal); E11.9 Type 2 diabetes mellitus without complications; N95.9 Unspecified menopausal and perimenopausal disorder
CPT/HCPCS: 36415; 80053; 80061; 82044; 82306; 82607; 83036; 84443; 85025